=== PATIENT | female | born 1950 | race Caucasian/White ===

== ENCOUNTER → 2020-05-22 12:31 | Outpatient (CLI) | payer OTHER, SELFPAY ==
--- NOTE | 2020-05-22 | DI.RAD.S_ITS ---
PROCEDURE: XR CERVICAL SPINE 4V OR 5V INDICATIONS: CERVICALGIA TECHNIQUE: 5 views of the cervical spine acquired. COMPARISON: [facility] [place], CR, XR CERVICAL SPINE 6+ VIEWS, 05/05/2017, 15:37. FINDINGS: Bones: No fractures or dislocations to the T1 level. Oblique images demonstrate only mild symmetric bony foraminal stenoses at C4-5 and C5-6.. Soft tissues: No prevertebral soft tissue swelling. IMPRESSION: Moderately severe degenerative disc disease again noted at the C5-6 and C6-7 levels. Slight anterolisthesis is again noted of C4 on C5, with reference to the prior study from April 2017. Mild foraminal stenosis appears symmetric at C4-5 and C5-6, without appreciable worsening over time. Dictated by: Jose Foote M.D. on 05/22/2020 at 13:26 Approved by: Jose Foote M.D. on 05/22/2020 at 13:28
== END ==
PROVIDERS: PCP Family Medicine; Referring Provider Physical Medicine & Rehabilitation; Visit Provider Physical Medicine & Rehabilitation
DX: M50.322 Other cervical disc degeneration at C5-C6 level (principal); M48.02 Spinal stenosis, cervical region; R51.9 Headache, unspecified; M50.20 Other cervical disc displacement, unspecified cervical region; M47.812 Spondylosis without myelopathy or radiculopathy, cervical region
CPT/HCPCS: 72050; 99214

== ENCOUNTER → 2020-08-05 13:07 | Outpatient (CLI) | payer OTHER, SELFPAY ==
[2020-08-05 15:09] LABS: COVID19 -Nasal RAPID Negative (Negative)
== END ==
PROVIDERS: PCP Family Medicine; Visit Provider Physical Medicine & Rehabilitation
DX: Z20.822 Contact with and (suspected) exposure to COVID-19 (principal)
CPT/HCPCS: 87635; C9803

== ENCOUNTER 2020-08-06 09:27 | Outpatient (CLI) | payer OTHER, SELFPAY ==
[2020-08-05 10:20] VITALS: BP 116/56; PULSE 70; RESP 16; O2SAT 98
[2020-08-06] VITALS (7 sets, daily range): BP systolic 103–120; BP diastolic 52–73; PULSE 69–75; RESP 10–20; TEMP 36.2; O2SAT 93–98
--- NOTE | 2020-08-06 09:28 | DI.RAD.S_ITS ---
PROCEDURE: PAIN C/T FACET INJ/BLK 1ST L INDICATIONS: SPINAL STENOSIS COMPARISON: [facility], CR, XR CERVICAL SPINE 4V OR 5V, 05/22/2020, 12:35. FINDINGS: Fluoroscopic spot filming was performed to verify placement of spinal needles on the left at the C4-C5, C5-C6, and C6-C7 level(s), as labeled on the films. Appropriate location(s) of the needle tip(s) was confirmed by injection of iodinated contrast. IMPRESSION: Intraprocedural examination within normal limits. Dictated by: Ramón Rosas M.D. on 08/06/2020 at 9:53 Approved by: Ramón Rosas M.D. on 08/06/2020 at 9:54
[2020-08-06] MEDS: fentaNYL 100 MCG/2 ML INJ 50 MCG IV (10:05)
[2020-08-06] MEDS: MIDAZOLAM 5 MG/5 ML VIAL IV (10:10)
[2020-08-06] MEDS: DEXAMETHASONE 10 MG/ML VIAL 30 MG INJ (10:12)
[2020-08-06] MEDS: BUPIVACAINE 0.5% (PF) VIAL 2 ML INJ (10:12)
[2020-08-06] MEDS: IOPAMIDOL 15 ML VIAL 3 ML INJ (10:12)
--- NOTE | 2020-08-06 10:23 | P.PCN_ITS ---
Date/Time/Diagnoses Date of procedure: 08/06/20 Time of procedure: 10:23 Pre-procedure diagnosis: 1. FACET ARTHROPATHY 2. AXIAL NECK PAIN Post-procedure diagnosis: same Procedure Notes Procedure: 1. FLUOROSCOPICALLY GUIDED, CONTRAST-CONTROLLED LEFT C4/5, C5/6 AND C6/7 FACET JOINT INJECTIONS WITH CONSCIOUS SEDATION. Indications: Joni is referred by Dr. Guadarrama for treatment of Axial Neck Pain Physician: Jamir Batista Total Fluoroscopy time (seconds): 9 Total sedation minutes: 14 Complications: none Procedure in detail & Post-procedure care: DESCRIPTION OF PROCEDURE Fluoroscopically guided, contrast-controlled left C4/5, C5/6 and C6/7 facet joint injections with conscious sedation. Following review of allergy and review of potential side effects and complications, including, but not necessarily limited to, infection, allergic reaction, local tissue breakdown, stroke, temporary or permanent nerve injury and paralysis, the patient indicated that the patient understood and agreed to p roceed. An informed consent document was signed by the patient, witnessed by a nurse, and placed in the patient's chart. Additionally, other treatment options including medications, modalities, and physical therapy were reviewed with the patient. After review of previous anaesthesic history and IV conscious sedation the patient was deemed safe to proceed with today?s procedure with IV conscious sedation as ASA class II designation. Safety time-out was performed to confirm patient ID, procedure to be performed and site of procedure. IV sedation was accomplished with a combination of 2mg of Versed and 50mcg of Fentanyl was administered by the RN after DO order, titrated to patient comfort during the course of the procedure while the patient remained responsive to all verbal commands In the prone position, following sterile prep and drape of the cervical spine region, the posterior aspect of the left C4/5, C5/6 and C6/7 facet joints were identified fluoroscopically. The skin was anesthetized via a 25-gauge 1.5-inch needle with 1% lidocaine solution into the corresponding facet joints. At this point, a 25-gauge 2.5-inch spinal needle was atraumatically introduced and advanced under fluoroscopic guidance into the corresponding facet joints. Following negative aspiration, injections of approximately 0.2cc of Isovue 200 confirmed interarticular placement without vascular uptake. At this point, a total of 1cc including 0.5cc or 5mg of dexamethasone combined with 0.5cc of 1% lidocaine solution was injected without complication into each of the corresponding facet joints. The procedure tolerated the procedure well without signs or symptoms of complications prior to transfer to the recovery area continued monitoring without incident. The patient was then transferred to the recovery area where they were observed for an appropriate period of time after the injection. The patient reported a VAS score of 7 prior to the procedure and a post- procedure VAS of 0. POST OP INSTRUCTIONS They were provided a Pain Log to continue to record their response to the target-specific procedure prior to their follow-up visit with their referring physician. Additionally, specific post-injection care instructions and a contact number to our office were provided if concerns arise regarding possible complications associated with the procedure are suspected.
== END 2020-08-06 10:50 | disposition home or self-care (01) ==
LOC: RAD 09:27
PROVIDERS: PCP Family Medicine; Referring Provider Physical Medicine & Rehabilitation; Visit Provider Physical Medicine & Rehabilitation
DX: M47.812 Spondylosis without myelopathy or radiculopathy, cervical region (principal); M54.2 Cervicalgia
CPT/HCPCS: 64490; 64491; 64492; 64494; 64495; 99152; J1100; J2250; J3010

== ENCOUNTER → 2021-05-29 13:44 | Outpatient (CLI) | payer OTHER, SELFPAY ==
--- NOTE | 2021-05-29 13:45 | DI.MRI.S_ITS ---
PROCEDURE: MR CERVICAL SPINE WO CON INDICATIONS: Cervical radiculopathy chronic progressive neck pain TECHNIQUE: Noncontrast sagittal T1 spin echo and T2 fast spin echo, sagittal STIR, foraminal oblique sagittal T2 fast spin echo, and axial gradient echo or T2 fast spin echo through the cervical spine. COMPARISON: [facility], CR, SPINE CERVICAL COMP W/ FL/EX, 05/07/2014, 14:47. [facility], MR, MR CERVICAL SPINE WO CON, 04/04/2015, 20:35. CR, SPINE CERVICAL MIN 4VW, 02/21/2016, 10:39. FINDINGS: Image quality: Excellent. Alignment and Curvature: There is trace, approximately 2 millimeters of C7-T1, T1-T2 and T2-T3 anterolisthesis. Bone Marrow: Reactive endplate changes noted adjacent to the C5-C6 and C6-C7 discs. Spinal Cord: Visualized spinal cord has normal size and signal. No cerebellar tonsillar herniation. Paraspinous Soft Tissues: No paravertebral masses. Prevertebral soft tissues are normal in thickness. C2-C3: Loss of disc signal. No central stenosis. Mild bilateral facet hypertrophy. No neural foraminal narrowing. No neural compression. C3-C4: Loss of disc signal. Minimal, diffuse disc bulge. Small left central disc protrusion. Mild right and moderate left facet hypertrophy. Mild right and moderate left uncovertebral joint hypertrophy. No central stenosis. Moderate right and severe left neural foraminal narrowing with compression of the exiting left C4 nerve root. C4-C5: Loss of disc signal and slight loss of disc height. Mild to moderate diffuse disc bulge. Moderate bilateral facet hypertrophy. Moderate bilateral uncovertebral joint hypertrophy. Mild narrowing of the central canal. Severe bilateral neural foraminal narrowing with compression of the exiting bilateral C5 nerve roots. C5-C6: Loss of disc signal and height. Mild to moderate diffuse disc bulge. Moderate bilateral facet hypertrophy. Mild right and moderate left uncovertebral joint hypertrophy. Moderate narrowing of the central canal. Moderate right and severe left neural foraminal narrowing with compression of the exiting left C6 nerve root. C6-C7: Loss of disc signal and height. Moderate, diffuse disc bulge. Mild bilateral facet hypertrophy. Mild bilateral uncovertebral joint hypertrophy. Moderate narrowing of the central canal. Mild bilateral neural foraminal narrowing. No neural compression. C7-T1: Loss of disc signal and height. Mild to moderate diffuse disc bulge. Mild narrowing of the central canal. No neural foraminal narrowing. No neural compression. IMPRESSION: 1. Multilevel degenerative disc disease. 2. Multilevel facet and uncovertebral arthropathy. 3. No severe central canal narrowing. 4. Severe left C3-C4 and C5-C6 neural foraminal narrowing with compression of the exiting left C4 and C6 nerve roots. Severe bilateral C4-C5 neural foraminal narrowing with compression of the exiting bilateral C5 nerve roots. Dictated by: Adrienne Navarro MD, PhD on 05/29/2021 at 16:44 Approved by: Adrienne Navarro MD, PhD on 05/29/2021 at 16:49
== END ==
PROVIDERS: PCP Family Medicine; Referring Provider Physical Medicine & Rehabilitation; Visit Provider Physical Medicine & Rehabilitation
DX: R51.9 Headache, unspecified (principal); M48.02 Spinal stenosis, cervical region; M50.121 Cervical disc disorder at C4-C5 level with radiculopathy; M47.22 Other spondylosis with radiculopathy, cervical region
CPT/HCPCS: 72141

== ENCOUNTER → 2021-10-13 13:29 | Outpatient (CLI) | payer OTHER, SELFPAY ==
--- NOTE | 2021-10-13 13:32 | DI.RAD.S_ITS ---
PROCEDURE: XR CERVICAL SPINE 4V OR 5V INDICATIONS: NECK PAIN TECHNIQUE: 5 views of the cervical spine acquired. COMPARISON: None. FINDINGS: Bones: No fractures or dislocations to the T1 level. Oblique images demonstrate moderate left C3-C4, mild left C4-C5, C5-C6 and C6-C7 as well as mild right C4-C5 bony foraminal stenoses. Severe C5-C6 and C6-C7 degenerative disc disease. Moderate C4-C5 degenerative disc disease. Mild C2-C3 and C4-C5 degenerative disc disease. Moderate facet hypertrophy noted throughout the cervical spine. Soft tissues: No prevertebral soft tissue swelling. IMPRESSION: 1. Multilevel degenerative disc disease. 2. Multilevel facet arthropathy. 3. No fracture. No acute osseous lesion. If symptoms and/or clinical suspicion for pathology persists, evaluation with MRI should be considered for further assessment. Dictated by: Adrienne Navarro MD, PhD on 10/13/2021 at 17:17 Approved by: Adrienne Navarro MD, PhD on 10/13/2021 at 17:19
== END ==
PROVIDERS: PCP Family Medicine; Referring Provider Physical Medicine & Rehabilitation; Visit Provider Physical Medicine & Rehabilitation
DX: M50.31 Other cervical disc degeneration, high cervical region (principal); M47.812 Spondylosis without myelopathy or radiculopathy, cervical region; M48.02 Spinal stenosis, cervical region; G43.009 Migraine without aura, not intractable, without status migrainosus; M50.20 Other cervical disc displacement, unspecified cervical region
CPT/HCPCS: 72050; 99215